=== PATIENT | male | born 1980 | race Caucasian/White ===

== ENCOUNTER 2024-01-27 15:59 | Day surgery (SDC) | payer BC, SELFPAY ==
[2024-01-27] VITALS (10 sets, daily range): BP systolic 119–143; BP diastolic 71–92; BMI 27.2
--- NOTE | 2024-01-27 12:23 | ED.GENMED ---
History of Present Illness
General
Chief Complaint: Abdominal Pain
Time Seen by Provider: 01/27/24 11:59
Travel History
Have you had any contact with someone who has COVID-19?: No
Do you have any symptoms of coronavirus? Fever > 100 degrees, chills, cough, shortness of breath, sore throat, loss of taste or smell, muscle aches, or headache?: No
History of Present Illness
History of Present Illness:
43 year-old male with no significant past history presents to the emergency department for evaluation of right lower abdominal pain. He notes that yesterday he had diffuse abdominal pain that gradually migrated to the right lower quadrant. His
appetite has been normal but eating does increase the pain. Denies any associated fever, chills, or sweats but has felt fatigued. No history of abdominal surgeries. No recent URI symptoms or lower urinary tract voiding symptoms.
Review of Systems
Review of Systems
Allergies reviewed?: Yes
All Other Systems: ROS reviewed and negative except as documented in HPI and ROS
Phy Exam
Physical Exam
Physical Exam:
GEN: Well appearing, NAD, WDWN
HEENT: Oral mucosa moist, no scleral icterus
Cardiac: Regular rate and rhythm, no murmurs
Lung: No respiratory distress, no tachypnea
Abdomen: Soft, focal tenderness to the right lower quadrant, no rigidity or peritoneal signs
MSK: No gross deformity or injuries
Skin: Good color, no pallor or jaundice, no rashes
Neuro: AO x3, moves all extremities freely
Psych: Calm, cooperative
Course
Orders/Labs/Results
Orders:
Orders
01/27/24 12:16
CT Abd/Pel (IV only)-DH only Urgent
Comment:
Reason For Exam: RLQ pain
Urinalysis Reflex To Culture Urgent
Date Specimen was Collected: 01/27/24
Time Specimen was Collected: 12:15
Urine Microscopic Reflex Cult Urgent
01/27/24 12:25
Complete Blood Count/With Diff Urgent
Comprehensive Metabolic Panel Urgent
01/27/24 14:57
Piperacillin/Tazo 3.375 Gram [Zosyn] 3.375 gram in 50 ml IV NOW
01/27/24 Dinner
NPO
Allow oral meds: No
Allow clear liquids: No
01/27/24 15:27
Admit Patient As Directed
Co-Sign Provider:
Level of Care: Post Proc/Surg Recovery
Assign to:: Medical/Surgical
Physician / Group: Darnell Chin
Diagnosis: Acute Appendicitis
Reason for Overnight Stay: Require IV med- infection
Pneumatic Compression Sleeves As Directed
Type: Knee high
DX Deep Vein Thrombosis Video Routine
01/27/24 15:37
Fentanyl Citrate/Pf [Sublimaze] 100 mcg .ROUTE .STK-MED ONE
Midazolam HCl [Versed] 2 mg .ROUTE .STK-MED ONE
Ondansetron Injectable [Zofran] 4 mg .ROUTE .STK-MED ONE
Propofol [Diprivan] 20 ml .ROUTE .STK-MED
Rocuronium [place] [Rocuronium] 50 mg .ROUTE .STK-MED ONE
01/27/24 15:42
Bupivacaine Mpf 0.25% [Sensorcaine-Mpf 0.25% Vial] 30 ml .ROUTE .STK-MED ONE
Abnormal Lab Results
01/27/24 01/27/24
12:16 12:25
Absolute Monos (auto) 0.7 H 10^3/uL
(0.1-0.6)
Ur Occult Blood Reflex 1+ A
(Negative)
Urine Bilirubin 1+ A
(Negative)
Urine RBC 7-10 A /HPF
(0-2)
01/27/24 12:25
01/27/24 12:25
Vital Signs
Initial and Last Documented VS:
Initial Vital Signs
Temp Pulse Resp BP Pulse Ox
98.2 F 89 16 143/83 99
01/27/24 11:39 01/27/24 11:39 01/27/24 11:39 01/27/24 11:39 01/27/24 11:39
Last Documented Vital Signs
Temp Pulse Resp BP Pulse Ox
98.1 F 86 16 136/74 99
01/27/24 15:39 01/27/24 15:39 01/27/24 15:39 01/27/24 15:39 01/27/24 15:39
MDM/Problems Addressed
MDM/Problems Addressed:
CT shows evidence of acute appendicitis. He is clinically well with a nonperitoneal exam. Will keep n.p.o., antibiotics started, will admit the patient to the general surgery service for operative intervention
*Critical Care Note
Total Time (30-74mins, 75-104mins- exclusive of procedures): Not Applicable
ED Attending Note
-
Portions of this chart may have been created with voice recognition software.� Occasional wrong word or��sound alike� substitutions may have occurred due to the inherent limitations of voice recognition software.
Discharge Plan
Departure
Patient Disposition: Admit
Date of Disposition: 01/27/24
Time of Disposition: 15:00
Admit to: Med/Surg
Presentation/result/management discussed w/ accepting MD/DO: Gen Surg-Pellini
Discharge Problem:
Acute appendicitis
Prescriptions:
No Action
Men's Multivitamin 400-20-300 mcg Tablet
1 tab PO DAILY
fiber
1 tab PO DAILY
Referrals:
NONE,* [Family Provider] -
Interventions
Interventions:
*Risk Screen - Suicide Last Done: 01/27/24 11:39
*General Assessment Last Done: 01/27/24 11:39
*Neglect/Abuse Screening Last Done: 01/27/24 11:39
*ED COVID-19 Vaccine History Last Done: 01/27/24 11:39
Discharge Date and Time
Print Language: OCCITAN
[2024-01-27 12:37] LABS: % Basophils 0.1 % (0-2); % Eosinophils 1.2 % (0-6); % Immature Granulocytes 0.2 % (0-0.5); % Lymphocytes 28.9 % (20.5-51.1); % Monocytes 7.7 % (1.7-9.3); % Neutrophils 61.9 % (42.2-75.2); Absolute Eosinophils 0.1 10^3/uL (0-0.7); Absolute Lymphocytes 2.6 10^3/uL (1.2-3.4); Absolute Monocytes 0.7 10^3/uL (0.1-0.6); Absolute Neutrophils 5.6 10^3/uL (1.4-6.5); Hematocrit 41.8 % (39.0-52.0); Hemoglobin 14.5 g/dL (13.0-18.0); Mean Corp Hgb Conc. 34.7 g/dL (33.0-37.0); Mean Corpuscular Hgb 30.3 pg (27.0-31.0); Mean Corpuscular Volume 87.4 fL (80.0-94.0); Mean Platelet Volume 9.8 fL (7.4-10.4); Nucleated Red Blood Cells % 0 % (-); Platelet Count 224 10^3/uL (130-400); Red Blood Cell Count 4.78 10^6/uL (4.70-6.10); Red Cell Dist. Width 12.1 % (11.5-14.5); White Blood Cell Count 9.1 10^3/uL (4.8-10.8)
[2024-01-27 12:38] LABS: Urine Albumin Negative (Neg - Trace); Urine Bilirubin 1+ (Negative); Urine Character Clear (Clear); Urine Color Yellow; Urine Glucose Negative (Negative); Urine Ketone Negative (Negative); Urine Leukocyte Negative (Negative); Urine Nitrite Negative (Negative); Urine Occult Blood 1+ (Negative); Urine Specific Gravity 1.015 (<1.030); Urine Urobilinogen Negative (Neg - 1+)
[2024-01-27 12:52] LABS: ALT (SGPT) 27 U/L (0-50); AST (SGOT) 25 U/L (17-59); Albumin 4.6 g/dl (3.5-5.0); Alkaline Phosphatase 47 U/L (38-126); Blood Urea Nitrogen 16 mg/dl (9-20); Calcium 9.9 mg/dl (8.4-10.2); Carbon Dioxide 29 mmol/L (22-30); Chloride 100 mmol/L (98-107); Estimated Creatinine Clearance 99 ml/min; Glucose 96 mg/dl (70-99); Potassium 3.8 mmol/L (3.5-5.1); Sodium 136 mmol/L (135-145); Total Bilirubin 0.8 mg/dl (0.2-1.3); Total Protein 7.5 g/dl (6.3-8.2); eGFR > 60.00
[2024-01-27 13:05] LABS: Urine Squamous Cell 0-2 /LPF (Few); Urine White Cell 0-2 /HPF (0-5)
[2024-01-27] MEDS: ZOSYN 50 IV (15:09)
--- NOTE | 2024-01-27 15:27 | HPS.HSE ---
Addendum entered and electronically signed by Darnell Chin MD 01/27/24 15:54:
Patient seen and examined with nurse practitioner. Agree with documented history and physical.
Brief HPI: 43-year-old male acute onset of abdominal pain yesterday at 4 AM. Increased in severity throughout the day and overnight localized in the right lower quadrant prompting today's emergency department evaluation. Mild anorexia but no
nausea or vomiting. Last bowel movement 2 days ago. No similar episodes like this in the past.
No significant medical history, no pertinent surgical history.
AFVSS
ABD: Soft, nondistended, tenderness palpation localized in the right lower quadrant, no rebound rigidity or guarding
CT imaging personally reviewed and interpreted. Fluid-filled dilated appendix with periappendiceal inflammatory changes consistent with acute appendicitis. No organized fluid collections, extraluminal air or signs of abscess.
Assessment/plan: 43-year-old male with acute appendicitis. We discussed treatment options including appendectomy versus nonoperative management. Patient in agreement to proceed with appendectomy. Laparoscopic appendectomy was reviewed in detail
including operative technique, alternative treatment options, potential benefits and risk such as but not limited to bleeding, infectious or wound related complications, iatrogenic injury to surrounding viscera.
Patient has been added onto the OR schedule for appendectomy today
IV fluid hydration
As needed analgesics and antiemetics
Zosyn initiated emergency department
Original Note:
Family Physician
-
Family Physician: * NONE
Chief Complaint
-
abdominal pain
History of Present Illness
This is a 43 yo male with a h/o tonsillectomy who developed pain yesterday morning around 4am awakening him from sleep. Initially the pain was generalized and he attributed it to constipation; however, it worsened and localized to the RLQ causing
him to present for evaluation. He has had a poor appetite but denies nausea or vomiting. He notes he has not passed a bm x2 days. Denies bladder changes. He had chills at home, but took his temperature and notes no fevers.
Medical History
Past Medical History
Past Medical History: Reports None
Past Surgical History: Reports Tonsilectomy
Social History
Tobacco: Non-smoker
Family History
Family History: Not pertinent
Allergies / Home Medications
Allergies reflects when Allergies were last updated in [facility] [employer].
Home Medications with original date entered in [employer]
Allergy/Medication List:
Patient Allergies
Allergy/AdvReac Type Severity Reaction Status Date / Time
cefdinir Allergy Unknown Verified 01/27/24 11:42
�Medication �Instructions �Recorded �Confirmed �Type
fiber 1 tab PO DAILY 01/27/24 01/27/24 History
ihnwmcto-lcjsaasm-ukzhg acid 400 1 tab PO DAILY 01/27/24 01/27/24 History
mcg-vit K 20 mcg-lycop 300 mcg
tablet
Review of Systems
-
History Source: Patient
A 12 point ROS was completed and negative except as noted: Yes
Physical Exam
Vital Signs
Vital Signs
Temp Pulse Resp BP Pulse Ox
98.2 F 89 16 143/83 99
01/27/24 11:39 01/27/24 11:39 01/27/24 11:39 01/27/24 11:39 01/27/24 11:39
Physical Exam
General: Well Developed and No Apparent Distress
HEENT: Moist mucous membranes
Respiratory: Non Labored Respirations
GI: Soft, Non Distended, Tender (RLQ) and Other (No rebound/guarding)
Skin: Warm and Dry
Neuro: Awake, Alert and AO x 3
Psych: Calm
Laboratory Results
-
01/27/24 12:25
01/27/24 12:25
Laboratory Results
Total Bilirubin 0.8 mg/dl (0.2-1.3) 01/27/24 12:25
AST 25 U/L (17-59) 01/27/24 12:25
ALT 27 U/L (0-50) 01/27/24 12:25
Alkaline Phosphatase 47 U/L (38-126) 01/27/24 12:25
Data Reviewed
-
CT Scan: Image Personally Visualized and interpreted, Report Reviewed by me, Discussed with Physician, Discussed with Nurse and Discussed with Patient
Lab Data: Labs Reviewed by me, Discussed with Physician, Discussed with Patient and Discussed with Family
Old Records: Reviewed
Impression/Plan
-
IMPRESSION:
43 yo male presenting with abdominal pain >24 hours with chills and poor appetite. CT imaging and exam consistent with acute appendicitis. Afebrile with stable vital signs. No leukocytosis.
PLAN:
--IV zosyn given in ED
--Keep NPO
--OR this afternoon for laparoscopic appendectomy
--- NOTE | 2024-01-27 16:14 | W.SUR.PREOP ---
Pre-Operative Surgical Note
-
I have examined this patient prior to the performance of the scheduled procedure.
The patient's condition is unchanged from the time of the current History and
Physical and the patient is able to undergo the scheduled procedure.
--- NOTE | 2024-01-27 17:22 | W.IMMPOSTOP ---
Addendum entered and electronically signed by Darnell Chin MD 01/27/24 17:38:
#[id number]
Original Note:
Surgical Immed Post Op Note
-
Primary Surgeon: Giuseppe
Assisting Surgeon: None
Pre-op Diagnosis: Acute Appendicitis
Post-op Diagnosis: Acute Appendicitis
Procedure Performed: Laparoscopic Appendectomy
Anesthesia Type: GETA + 0.25% Marcaine
Specimen / Cultures: appendix
Estimated Blood Loss: 10mL
Complications: none immediate
Operative Findings: Acute uncomplicated appendicitis. no abscess, no perforation, no purulence, no disruption of appendix with appendectomy
plan: if post op pain controled and no PONV then okay for d/c home
message left on patients phone, reviewed d/c instruction with pt preop
[2024-01-27] MEDS: ROXICODONE 5 MG PO (18:21)
== END 2024-01-27 18:00 | disposition home or self-care (01) ==
LOC: SDS 15:59
PROVIDERS: Physician Assistant; ATTENDING PHYSICIAN Surgery; EMERGENCY PHYSICIAN Emergency Medicine
DX: K35.80 Unspecified acute appendicitis (principal)
CPT/HCPCS: 44970; 88304; 74177; 80053; 81003; 81015; 85025; 96365; 99285; Q9967